=== PATIENT | female | born 1985 | race Asian ===

== ENCOUNTER 2016-11-16 03:16 | Emergency (ER) | payer BC ==
[~2016-11-16] VITALS: Ht 162.6 cm; Wt 73.5 kg
[2016-11-16] MEDS ORDERED: ANTIVERT25 MG PO (05:06)
[2016-11-16] MEDS ORDERED: ZOFRAN ODT4 MG PO (05:06)
[2016-11-16 05:33] LABS: ABSOLUTE NEUTROPHILS 11.2 thou/uL (1.4-8.2); BASOPHILS 0.7 % (0.0-2.0); EOSINOPHILS 1.3 % (0.0-3.0); HEMATOCRIT 42.1 % (37.0-47.0); HEMOGLOBIN 13.5 gm/dL (12.0-15.0); LYMPHOCYTES 9.7 % (24.0-44.0); MCH 25.9 pg (26.0-34.0); MCHC 31.9 % (28.0-37.0); MCV 81.2 fL (80.0-100.0); MONOCYTES 5.8 % (1.0-8.0); PLATELET COUNT 328 thou/uL (150-400); POLYS 82.5 % (36.0-66.0); RBC 5.19 mil/uL (4.20-5.00); RDW 14.4 % (10.5-14.5); WBC 13.6 thou/uL (4.0-11.0)
[2016-11-16 05:35] LABS: CALCIUM 8.1 mg/dL (8.5-10.1); CREATININE 0.7 mg/dL (0.6-1.3); POTASSIUM 3.6 mmol/L (3.5-5.1)
[2016-11-16 05:52] LABS: MANUAL DIFF NO
[2016-11-16 06:37] VITALS: BP 98/62
== END 2016-11-16 06:38 | disposition home or self-care (01) ==
LOC: ER 03:16
PROVIDERS: Emergency Medicine
DX: E86.0 Dehydration (principal); R42 Dizziness and giddiness

== ENCOUNTER → 2017-02-04 | Outpatient (CLI) | payer OTHER ==
[~2017-02-04] MED LIST: ANTIVERT25 MG PO; ZOFRAN ODT4 MG PO
[2017-02-04 15:45] LABS: ABSOLUTE NEUTROPHILS 12.7 thou/uL (1.4-8.2); BASOPHILS 0.8 % (0.0-2.0); EOSINOPHILS 2.7 % (0.0-3.0); HEMATOCRIT 42.3 % (37.0-47.0); LYMPHOCYTES 12.9 % (24.0-44.0); MCH 26.7 pg (26.0-34.0); MCHC 33.2 g/dL (28.0-37.0); MCV 80.4 fL (80.0-100.0); MONOCYTES 6.4 % (1.0-8.0); PLATELET COUNT 337 thou/uL (150-400); POLYS 77.2 % (36.0-66.0); RBC 5.26 mil/uL (4.20-5.00); RDW 15.6 % (10.5-14.5); WBC 16.5 thou/uL (4.0-11.0)
[2017-02-04 15:47] LABS: MANUAL DIFF NO
[2017-02-05 01:06] LABS: HEPATITIS C VIRUS AB <0.1 (0.0-0.9); RUBELLA IgG ANTIBODY* 3.43 index (Immune >0.99)
== END ==
LOC: ULTRA 14:11
DX: Z34.01 Encounter for supervision of normal first pregnancy, first trimester (principal); Z3A.11 11 weeks gestation of pregnancy

== ENCOUNTER → 2017-03-22 | Outpatient (CLI) | payer OTHER | LOC: ULTRA 09:20 | DX: Z34.02 Encounter for supervision of normal first pregnancy, second trimester (principal); Z3A.00 Weeks of gestation of pregnancy not specified ==

== ENCOUNTER → 2019-06-01 | Outpatient (CLI) | payer OTHER | LOC: ULTRA 12:57 | DX: O26.891 Other specified pregnancy related conditions, first trimester (principal); R10.2 Pelvic and perineal pain; Z3A.08 8 weeks gestation of pregnancy ==